=== PATIENT | male | born 1980 | race Caucasian/White ===

== ENCOUNTER 2019-12-31 07:45 | Observation (INO) | payer SELFPAY ==
[~2019-12-31] VITALS: Ht 177 cm; Wt 65.0 kg
[2019-12-31] VITALS (12 sets, daily range): BP systolic 134–160; BP diastolic 80–101
[2019-12-31] MEDS ORDERED: HYDROmorphone 2 MG/ML VIAL (DILAUDID) ONE (07:49)
[2019-12-31] MEDS ORDERED: KETAMINE HCL 100 MG/ML 5 ML VIAL ONE (07:56)
--- NOTE | 2019-12-31 08:20 | Diagnostic Imaging Report ---
Indication: Injured by horse. Findings: There are extra-articular fractures involving the junction of the mid to distal one thirds of the tibial and fibular diaphyses, both fractures mildly comminuted and showed mild about 5 to 10 degrees of medial angulation at the apices with the distal fragments mildly displaced posteriorly by about 1 cm. No overlap or foreshortening. There is overlying artifact limiting evaluation of the ankle with no obvious ankle fracture or ankle dislocation. Dedicated ankle films and knee radiographs recommended to exclude other more proximal or distal injuries. Impression: Mild angulation of a mildly comminuted extraarticular tibial and fibular diaphyseal fractures. Dictated by: Dictated on workstation # [id number]
--- NOTE | 2019-12-31 08:30 | NUR ---
Note saniya in [facility] - 12/31/19 at 0907 by KBELTRAM Patient is cooperative and calm at this time. Vital signs taken. Offered food and water.
--- NOTE | 2019-12-31 08:33 | ED Lower Extremity ---
General Chief Complaint: Lower Extremity Stated Complaint: ANKLE INJ Nursing Triage Note: PT WAS STEPPED ON BY A HORSE ON HIS RIGHT ANKLE AREA. PT ARRIVED IN THE BACK OF A [employer]. Nursing Sepsis Screen: No Definite Risk Source: patient Exam Limitations: no limitations History of Present Illness Date Seen by Provider: Dec 31, 2019 Time Seen by Provider: 07:50 Initial Comments States his horse accidentally stepped on him this morning just prior to arrival. Marilla his leg crack with immediate pain and unable to bear weight. Put in the back of a picket labor union and drove , then Carried into this ER by his friends. Admits history of left leg fracture w repair in the past. Onset: just prior to arrival Method of Injury: direct blow Modifying Factors: Worse With Movement Allergies and Home Medications Allergies Coded Allergies: No Known Drug Allergies (Unverified , 12/31/19) Patient Home Medication List Home Medication List Reviewed: Yes Review of Systems Constitutional: No dizziness, No fever; other (severe pain) Respiratory: No cough, No short of breath Cardiovascular: No chest pain, No edema, No syncope Gastrointestinal: No abdominal pain, No diarrhea, No vomiting Musculoskeletal: see HPI, other (severe RLE pain) Past Ztrwskx-Jbolte-Bwmgrc Hx Past Med/Social Hx: Reviewed Nursing Past Med/Soc Hx Patient Social History Alcohol Use: Occasionally Uses Recreational Drug Use: Yes Drug of Choice: MARIJUANA Smoking Status: Current Everyday Smoker Type Used: Smokeless Tobacco 2nd Hand Smoke Exposure: No Recent Foreign Travel: No Contact w/Someone Who Travel: No Recent Infectious Disease Expo: No Recent Hopitalizations: No Physical Abuse: No Sexual Abuse: No Mistreated: No Fear: No Seasonal Allergies Seasonal Allergies: No Past Medical History Surgeries: Yes Orthopedic Respiratory: No Cardiac: No Neurological: No Genitourinary: No Gastrointestinal: No Musculoskeletal: No Endocrine: No HEENT: No Cancer: No Psychosocial: No Integumentary: No Blood Disorders: No Physical Exam Vital Signs Vital Signs - First Documented 12/31/19 07:59 Temp 36.1 Pulse 55 Resp 18 B/P (MAP) 137/64 (88) Pulse Ox 98 O2 Delivery Room Air Capillary Refill : Less Than 3 Seconds Height, Weight, BMI Height: '" Weight: lbs. oz. kg; 20.00 BMI Method: General Appearance: moderate distress (pain RLE) HEENT: normal ENT inspection Cardiovascular: regular rate, rhythm, no JVD Respiratory: chest non-tender, lungs clear Gastrointestinal: non tender, soft; No distended, No guarding, No rebound Back: no CVA tenderness, no vertebral tenderness Legs: right leg bone tenderness, right leg deformity, right leg limited range of motion, right leg pain, right leg soft tissue tenderness, right leg swelling Knees: bilateral knee non-tender, bilateral knee normal inspection, bilateral knee no evidence of injury Feet: right foot non-tender, right foot normal inspection Neurologic/Psychiatric: no motor/sensory deficits, alert, normal mood/affect Skin: normal color, warm/dry Progress/Results/Core Measures Results/Orders Lab Results Laboratory Tests Test 12/31/19 07:53 Range/Units White Blood Count 7.9 4.3-11.0 10^3/uL Red Blood Count 4.66 4.35-5.85 10^6/uL Hemoglobin 13.9 13.3-17.7 G/DL Hematocrit 41 40-54 % Mean Corpuscular Volume 87 80-99 FL Mean Corpuscular Hemoglobin 30 25-34 PG Mean Corpuscular Hemoglobin Concent 34 32-36 G/DL Red Cell Distribution Width 13.2 10.0-14.5 % Platelet Count 258 130-400 10^3/uL Mean Platelet Volume 10.4 7.4-10.4 FL Neutrophils (%) (Auto) 55 42-75 % Lymphocytes (%) (Auto) 31 12-44 % Monocytes (%) (Auto) 8 0-12 % Eosinophils (%) (Auto) 4 0-10 % Basophils (%) (Auto) 1 0-10 % Neutrophils # (Auto) 4.4 1.8-7.8 X 10^3 Lymphocytes # (Auto) 2.5 1.0-4.0 X 10^3 Monocytes # (Auto) 0.6 0.0-1.0 X 10^3 Eosinophils # (Auto) 0.3 0.0-0.3 10^3/uL Basophils # (Auto) 0.1 0.0-0.1 10^3/uL Sodium Level 139 135-145 MMOL/L Potassium Level 4.1 3.6-5.0 MMOL/L Chloride Level 103 98-107 MMOL/L Carbon Dioxide Level 20 L 21-32 MMOL/L Anion Gap 16 H 5-14 MMOL/L Blood Urea Nitrogen 19 H 7-18 MG/DL Creatinine 1.02 0.60-1.30 MG/DL Estimat Glomerular Filtration Rate > 60 BUN/Creatinine Ratio 19 Glucose Level 142 H 70-105 MG/DL Calcium Level 9.3 8.5-10.1 MG/DL Corrected Calcium 9.0 8.5-10.1 MG/DL Total Bilirubin 0.4 0.1-1.0 MG/DL Aspartate Amino Transf (AST/SGOT) 12 5-34 U/L Alanine Aminotransferase (ALT/SGPT) 11 0-55 U/L Alkaline Phosphatase 66 40-136 U/L Total Protein 7.2 6.4-8.2 GM/DL Albumin 4.4 3.2-4.5 GM/DL My Orders Orders - RENA GREGORIO DO Hydromorphone Injection (Dilaudid Inject (12/31/19 07:49) Ankle 2 View Right (12/31/19 07:52) Ketamine Injection (Ketalar Injection) (12/31/19 07:56) Ankle 2 View Right (12/31/19 08:25) Tibia Fibula 2 View Right (12/31/19 08:43) Cbc With Automated Diff (12/31/19 08:48) Comprehensive Metabolic Panel (12/31/19 08:48) Ketamine Injection (Ketalar Injection) (12/31/19 09:00) Medications Given in ED Current Medications Medications Dose Ordered Sig/Alaina Route Start Time Stop Time Status Last Admin Dose Admin Hydromorphone HCl 2 mg STK-MED ONCE .ROUTE 12/31/19 07:49 12/31/19 07:52 DC 12/31/19 08:20 2 MG Ketamine HCl 500 mg STK-MED ONCE .ROUTE 12/31/19 07:56 12/31/19 08:00 DC 12/31/19 08:25 100 MG Vital Signs/I&O 12/31/19 07:59 Temp 36.1 Pulse 55 Resp 18 B/P (MAP) 137/64 (88) Pulse Ox 98 O2 Delivery Room Air Blood Pressure Mean: 88 Progress Progress Note : Progress Note Given 2 mg of Dilaudid initially with no significant relief of pain, then given 50 mg of ketamine to finish removing his boot. Than additional 50 mg of ketamine to apply a posterior splint. Patient tolerated dissociative sedation well without any adverse effect. Diagnostic Imaging Comments Findings: There are extra-articular fractures involving the junction of the mid to distal one thirds of the tibial and fibular diaphyses, both fractures mildly comminuted and showed mild about 5 to 10 degrees of medial angulation at the apices with the distal fragments mildly displaced posteriorly by about 1 cm. No overlap or foreshortening. There is overlying artifact limiting evaluation of the ankle with no obvious ankle fracture or ankle dislocation. Dedicated ankle films and knee radiographs recommended to exclude other more proximal or distal injuries. Impression: Mild angulation of a mildly comminuted extraarticular tibial and fibular diaphyseal fractures. Dictated on workstation # [id number] Dict: 12/31/19811 Trans: 12/31/19818 [facility] [id number] Interpreted by: ANITRA MARIE Electronically signed by: Departure Impression Primary Impression: Fracture of tibia and fibula Qualified Codes: S82.201A - Unspecified fracture of shaft of right tibia, initial encounter for closed fracture; S82.401A - Unspecified fracture of shaft of right fibula, initial encounter for closed fracture Disposition: 02 XFER [facility] Condition: Improved Admissions Decision to Admit Reason: Admit from ER (Trauma) Decision to Admit/Date: Dec 31, 2019 Time/Decision to Admit Time: 08:00 Transfer Transfer Progress Notes Called Ortho irrigation flume layer, Dr Patterson @ 0800, left message Called his office @0820, spoke to his racing secretary Dr Patterson accepts for transfer/admission to [facility] @ 0840 RENA GREGORIO DO Dec 31, 2019 08:33
--- NOTE | 2019-12-31 08:42 | Diagnostic Imaging Report ---
INDICATION: Right leg fractures, post reduction. TIME OF EXAM: 8:26 AM. COMPARISON: Correlation is made with the prior radiographs form earlier this same morning. FINDINGS: Cast material has been placed transfixing the right lower extremity. The fractures of the distal tibia and fibula at the junction of the mid and distal third are again noted. There is slight medial displacement of the distal fibular and tibial fracture fragments. There is lateral angulation of the distal tibial and fibular fracture fragments. The alignment has improved somewhat since earlier today. There is some mild posterior displacement on the lateral view of the distal tibial and fibular fracture fragments. IMPRESSION: Reduction of the right lower extremity tibial and fibular fractures, as described. There continues to be some displacement and angulation; however, this does appear to be mildly improved. Dictated by: Dictated on workstation # [id number]
[2019-12-31] MEDS ORDERED: KETAMINE HCL 100 MG/ML 5 ML VIAL IV ONE (09:00)
[2019-12-31 09:02] LABS: BASOPHILS # (AUTO) 0.1 10^3/uL (0.0-0.1); BASOPHILS % (AUTO) 1 % (0-10); EOSINOPHILS # (AUTO) 0.3 10^3/uL (0.0-0.3); EOSINOPHILS % (AUTO) 4 % (0-10); HEMATOCRIT 41 % (40-54); HEMOGLOBIN 13.9 G/DL (13.3-17.7); LYMPHOCYTES # (AUTO) 2.5 X 10^3 (1.0-4.0); LYMPHOCYTES % (AUTO) 31 % (12-44); MEAN CORPUSCULAR HEMOGLOBIN 30 PG (25-34); MEAN CORPUSCULAR HGB CONC 34 G/DL (32-36); MEAN CORPUSCULAR VOLUME 87 FL (80-99); MEAN PLATELET VOLUME 10.4 FL (7.4-10.4); MONOCYTES # (AUTO) 0.6 X 10^3 (0.0-1.0); MONOCYTES % (AUTO) 8 % (0-12); NEUTROPHILS # (AUTO) 4.4 X 10^3 (1.8-7.8); NEUTROPHILS % (AUTO) 55 % (42-75); PLATELET COUNT 258 10^3/uL (130-400); RED CELL DISTRIBUTION WIDTH 13.2 % (10.0-14.5); WHITE BLOOD COUNT 7.9 10^3/uL (4.3-11.0)
[2019-12-31 09:11] LABS: ALANINE AMINOTRANSFERASE 11 U/L (0-55); ALKALINE PHOSPHATASE 66 U/L (40-136); BILIRUBIN,TOTAL 0.4 MG/DL (0.1-1.0); BUN/CREATININE RATIO 19; CALCIUM 9.3 MG/DL (8.5-10.1); CARBON DIOXIDE 20 MMOL/L (21-32); CHLORIDE 103 MMOL/L (98-107); CREATININE SERUM 1.02 MG/DL (0.60-1.30); GFR ESTIMATED > 60; GLUCOSE 142 MG/DL (70-105); POTASSIUM 4.1 MMOL/L (3.6-5.0); SODIUM 139 MMOL/L (135-145); TOTAL PROTEIN 7.2 GM/DL (6.4-8.2)
[2019-12-31 09:12] LABS: ALBUMIN 4.4 GM/DL (3.2-4.5)
--- NOTE | 2019-12-31 09:13 | Diagnostic Imaging Report ---
INDICATION: Fracture. FINDINGS: There is mild medial angulation and posterior displacement of the extra-articular fractures of the tibial and fibular diaphyses at the junction of their mid to distal one thirds. No widening of the ankle mortise. The medial, lateral, and posterior malleoli appear intact. The proximal tibia and fibula are unremarkable. The alignment of the knee, as seen on this study, is unremarkable. IMPRESSION: Mild angulation and mildly displaced extra-articular tibial and fibular diaphyseal fractures without overlap or foreshortening. Dictated by: Dictated on workstation # [id number]
[2019-12-31] MEDS ORDERED: NEO/POLY/BAC (NEOSPORIN) OINT 15 GM TUBE ONE (10:23)
--- NOTE | 2019-12-31 10:50 | NUR ---
HORACE MADRIGAL admitted to room 402-1, with an admitting diagnosis of TIB/FIB FX, on 12/31/19 from [facility] ED via stretcher, accompanied by EMS. HORACE MADRIGAL introduced to surroundings, call light, bed controls, phone, TV, temperature control, lights, meal times, smoking policy, visitor policy, side rail policy, bathrooms and showers. Patient Rights given to patient in the handbook. HORACE MADRIGAL verbalizes understanding that [facility] is not responsible for the loss or damage to any personal effects or valuables that are kept in the patients possession during their hospitalization. The following Patient Care Plans were discussed with the patient: Discharge Planning, pain management, dehydration, and medications. HORACE MADRIGAL verbalizes understanding of Interdisciplinary Patient Education. Patient and/or family were informed about the Rapid Response Team and its purpose.
--- OUTSIDE RECORDS SUMMARY | 2019-12-31 10:50 | XMS REPORT | Continuity of Care Document ---
Demographics Preferred Language Unknown Marital Status Unknown Yazidism Affiliation Unknown Race Unknown Ethnic Group Unknown Author Organization Unknown Address Unknown Phone Unavailable Allergies There is no data. Medications There is no data. Problems There is no data. Procedures There is no data. Results Test Result Range Complete blood count (CBC) with automate d white blood cell (WBC) differential - 12/31/19 07:53 Blood leukocytes automated count (number/volume) 7.9 10*3/uL 4.3-11.0 Blood erythrocytes automated count (number/volume) 4.66 10*6/uL 4.35-5.85 Venous blood hemoglobin measurement (mass/volume) 13.9 g/dL 13.3-17.7 Blood hematocrit (volume fraction) 41 % 40-54 Automated erythrocyte mean corpuscular volume 87 [ foz_us] 80-99 Automated erythrocyte mean corpuscular h emoglobin (mass per erythrocyte) 30 pg 25-34 Automated erythrocyte mean corpuscular h emoglobin concentration measurement (mass/volume) 34 g/dL 32-36 Automated erythrocyte distribution width ratio 13. 2 % 10.0- 14.5 Automated blood platelet count (count/volume) 258 10*3/uL 130-400 Automated blood platelet mean volume measurement 10.4 [foz_us] 7.4-10.4 Automated blood neutrophils/100 leukocytes 55 % 42-75 Automated blood lymphocytes/100 leukocytes 31 % 12-44 Blood monocytes/100 leukocytes 8 % 0-12 Automated blood eosinophils/100 leukocytes 4 % 0-10 Automated blood basophils/100 leukocytes 1 % 0-10 Blood neutrophils automated count (number/volume) 4.4 10*3 1.8-7.8 Blood lymphocytes automated count (number/volume) 2.5 10*3 1.0-4.0 Blood monocytes automated count (number/volume) 0. 6 10*3 0.0-1.0 Automated eosinophil count 0.3 10*3/uL 0 .0-0.3 Automated blood basophil count (count/volume) 0.1 10*3/uL 0.0-0.1 Comprehensive metabolic panel - 12/31/19 07:53 Serum or plasma sodium measurement (moles/volume) 139 mmol/L 135-145 Serum or plasma potassium measurement (moles/volume) 4.1 mmol/L 3.6-5.0 Serum or plasma chloride measurement (moles/volume) 103 mmol/L 98-107 Carbon dioxide 20 mmol/L 21-32 Serum or plasma anion gap determination (moles/volume) 16 mmol/L 5-14 Serum or plasma urea nitrogen measurement (mass/volume ) 19 mg/dL 7-18 Serum or plasma creatinine measurement (mass/volume) 1.02 mg/dL 0.60-1.30 Serum or plasma urea nitrogen/creatinine mass ratio 19 NRG Serum or plasma creatinine measurement w ith calculation of estimated glomerular filtration rate > NRG Serum or plasma glucose measurement (mass/volume) 142 mg/dL 70-105 Serum or plasma calcium measurement (mass/volume) 9.3 mg/dL 8.5-10.1 Serum or plasma total bilirubin measurement (mass/volu me) 0.4 mg/dL 0.1-1.0 Serum or plasma alkaline phosphatase maisha surement (enzymatic activity/volume) 66 U/L 40-136 Serum or plasma aspartate aminotransfera se measurement (enzymatic activity/volume) 12 U/L 5-34 Serum or plasma alanine aminotransferase measurement (enzymatic activity/volume) 11 U/L 0-55 Serum or plasma protein measurement (mass/volume) 7.2 g/dL 6.4-8.2 Serum or plasma albumin measurement (mass/volume) 4.4 g/dL 3.2-4.5 CALCIUM CORRECTED 9.0 mg/dL 8.5-10.1 Encounters ACCT No. Visit Date/Time Discharge Status Pt. Type Provider Facility Loc./Unit Complaint [id number] 12/31/2019 09:03:00 Document Registration
[2019-12-31] MEDS ORDERED: fentaNYL INJECTION 100 MCG/2 ML AMP IVP NR (11:00)
[2019-12-31] MEDS ORDERED: ceFAZolin 2 GM IV Premixed 50 ML IV NR (11:00)
--- NOTE | 2019-12-31 11:07 | History & Physical Orthopedic ---
History and Physical Subjective Date of Exam 12/31/19 Chief Complaint Fracture right tibia and fibula HPI/Events since last exam The patient has a 39-year-old white male who was kicked by a horse earlier this morning. He was seen in emergency room at [facility] evaluated and x- rayed noted to have a fracture of the right tibia and fibula. He was splinted and transferred here for further evaluation and treatment. He denies any previous injury to that leg. He's had a previous tibia and fibula fracture on the left. He denies any other injuries from this morning Medical, Surgical History Surgeries include orthopedic for fracture left arm left thumb left tibia and fibula. No other surgeries Illnesses none Medications none Allergies none Social History Patient works on a ranch near [place] Family History Negative Review of Systems Negative except for orthopedic injuries surgeries Allergies: Coded Allergies: No Known Drug Allergies (Unverified , 12/31/19) Objective Exam Constitutional: [Patient is a 39-year-old white male in mild distress due to pain in the right lower extremity. He is alert and oriented] HEENT: [Within normal limits] Neck: [Full range of motion without pain with motion or palpation] Cardiovascular: [Regular rhythm without murmurs] Respiratory: [Lungs clear to auscultation] Gastrointestinal: [No abdominal pain normal bowel sounds] Genitourinary: [Within normal limits] Skin: [Within normal limits] Back/Spine: [No pain with palpation] Extremities: [Upper extremitiesfull range of motion. No pain. No deformity. Neurovascularly intact. Normal sensation. Equal pulses. No weakness. Lower extremitiesfull range of motion left lower extremity. No pain either hip. No pain left knee left ankle. No deformity. Normal sensation with good cap refill. Good pulses on the left. On the right he splinted from the thigh to the toes. He has good sensation to his toes with good capillary refill. Good dorsalis pedis pulse. No pain right hip.] Neurologic: [Grossly intact within normal limits] Psychiatric: [] Hematologic/lymphatic/immunologic: [Negative] Vital Signs Vital Signs Date Time Temp Pulse Resp B/P (MAP) Pulse Ox O2 Delivery O2 Flow Rate FiO2 12/31/19 10:06 36.1 60 18 136/68 98 Room Air 12/31/19 07:59 36.1 55 18 137/64 (88) 98 Room Air Lab Results Laboratory Tests 12/31/19 07:53: White Blood Count 7.9, Red Blood Count 4.66, Hemoglobin 13.9, Hematocrit 41, Mean Corpuscular Volume 87, Mean Corpuscular Hemoglobin 30, Mean Corpuscular Hemoglobin Concent 34, Red Cell Distribution Width 13.2, Platelet Count 258, Mean Platelet Volume 10.4, Neutrophils (%) (Auto) 55, Lymphocytes (%) (Auto) 31, Monocytes (%) (Auto) 8, Eosinophils (%) (Auto) 4, Basophils (%) (Auto) 1, Neutrophils # (Auto) 4.4, Lymphocytes # (Auto) 2.5, Monocytes # (Auto) 0.6, Eosinophils # (Auto) 0.3, Basophils # (Auto) 0.1, Sodium Level 139, Potassium Level 4.1, Chloride Level 103, Carbon Dioxide Level 20L, Anion Gap 16H, Blood U lupillo Nitrogen 19H, Creatinine 1.02, Estimat Glomerular Filtration Rate > 60, BUN/Creatinine Ratio 19, Glucose Level 142H, Calcium Level 9.3, Corrected Calcium 9.0, Total Bilirubin 0.4, Aspartate Amino Transf (AST/SGOT) 12, Alanine Aminotransferase (ALT/SGPT) 11, Alkaline Phosphatase 66, Total Protein 7.2, Albumin 4.4 Imaging X-rays of the right tibia show a comminuted fracture at the junction of the mid and distal thirds of the tibia and fibula with mild displacement Assessment and Plan Assessment Fracture right tibia and fibula awaiting surgery Problem List Closed fracture right tibia and fibula Plan Surgical options were discussed with the patient. He would like to proceed with surgery. He prefers surgery over nonsurgical treatment. He understands proced ure risks, medications as he's had a previous IM rodding of the left tibia. He's been nothing by mouth since 430 this morning when he had some Dr. Bland. Plan on surgery late morning or early afternoon Final Diagonsis Closed fracture right tibia and fibula Level of the visit: Level 3 TOM GARVEY MD Dec 31, 2019 11:07
--- NOTE | 2019-12-31 11:10 | NUR ---
Patient off floor to surgery at this time.
[2019-12-31] MEDS ORDERED: CATHETER FLUSH 10 ML SYR IV PRN (11:15)
[2019-12-31] MEDS: LACTATED RINGERS 1,000 ML IV PRN ×2 (11:30→13:22)
[2019-12-31] MEDS ORDERED: ONDANSETRON 4 MG/2 ML (SDV) Z0FRAN ONE (11:39)
[2019-12-31] MEDS ORDERED: LIDOCAINE PF 2% 5 ML (XYLOCAINE) VIAL ONE (11:39)
[2019-12-31] MEDS ORDERED: DEXAMETHASONE 10 MG/ML (DECADRON) 1 ML VIAL ONE (11:39)
[2019-12-31] MEDS ORDERED: fentaNYL INJECTION 100 MCG/2 ML AMP ONE ×2 (11:39→12:57)
[2019-12-31] MEDS ORDERED: proPOfol 200 MG/20 ML (DIPRIVAN) VIAL IV ONE ×2 (11:39→12:59)
[2019-12-31] MEDS ORDERED: MIDAZOLAM 2 MG/2 ML (VERSED) VIAL ONE (11:40)
[2019-12-31] MEDS ORDERED: SEVOFLURANE (ULTANE) 15 ML INHAL SOLN ONE ×8 (11:52→13:51)
[2019-12-31] MEDS ORDERED: ROCURONIUM 10 MG/ML 5 ML SYRINGE IV ONE (12:30)
[2019-12-31] MEDS ORDERED: SUCCINYLCHOLINE INJ 100 MG/5 ML SYR ONE (12:30)
[2019-12-31] MEDS ORDERED: morphine INJ 10 MG/ML 1ML (SYR OR VIAL) ONE (14:08)
[2019-12-31] MEDS ORDERED: MEPERIDINE (DEMEROL) INJ 50 MG/ML ONE (14:08)
--- NOTE | 2019-12-31 14:08 | Anesthesia-General Post-Op ---
General Patient Condition Mental Status/LOC: Same as Preop Cardiovascular: Satisfactory Nausea/Vomiting: Absent Respiratory: Satisfactory Pain: Controlled Complications: Absent Post Op Complications Complications None Follow Up Care/Instructions Patient Instructions None needed. Anesthesia/Patient Condition Patient Condition Patient is doing well, no complaints, stable vital signs, no apparent adverse anesthesia problems. No complications reported per nursing. ABRAHAM BACON CRNA Dec 31, 2019 14:08
[2019-12-31] MEDS ORDERED: ONDANSETRON 4 MG/2 ML (SDV) Z0FRAN IVP PRN (14:15)
[2019-12-31] MEDS ORDERED: HYDROmorphone 2 MG/ML VIAL (DILAUDID) IV ONE (14:15)
[2019-12-31] MEDS ORDERED: fentaNYL INJECTION 100 MCG/2 ML AMP IVP ONE (14:15)
[2019-12-31] MEDS ORDERED: MEPERIDINE (DEMEROL) INJ 50 MG/ML IVP ONE (14:15)
[2019-12-31] MEDS ORDERED: morphine INJ 10 MG/ML 1ML (SYR OR VIAL) IVP ONE (14:15)
--- NOTE | 2019-12-31 14:22 | Diagnostic Imaging Report ---
INDICATION: Tibial and fibular fractures. Fluoroscopy was provided in the OR for ORIF of the tibial fracture. 173 seconds of fluoroscopic time was utilized. 5 images were obtained demonstrating intramedullary louann transfixing the fracture at the junction of the mid and distal 3rd of the tibia. Alignment anatomic. Fracture at the junction of the mid-distal 3rd of the fibula is again noted. IMPRESSION: Fluoroscopy for tibial ORIF. Dictated by: Dictated on workstation # [id number]
[2019-12-31] MEDS ORDERED: fentaNYL INJECTION 100 MCG/2 ML AMP IVP PRN ×2 (14:30)
--- NOTE | 2019-12-31 14:36 | Operative Report - Ortho ---
Operative Report Surgeon (s)/Mobile Device Engineer (s) Surgeon TOM GARVEY MD Mobile Device Engineer n/a Pre-Operative Diagnosis fracture right tibia and fibula Post-Operative Diagnosis same Operative Report Date of Procedure: Dec 31, 2019 Name of Procedure Performed: Closed IM rodding of right tibia fracture using a 3 75 mm x 11 mm I m louann with proximal distal locking screws Description & Findings Description and Findings: The patient was seen preoperatively and treatment options were discussed with the patient. I recommended closed IM rodding of the right tibia with possible open reduction internal fixation of the right fibula. The patient would like to proceed. He understands the procedure risk complications. The patient was taken operating room and after general anesthesia a tourniquet was placed on the right thigh. The right lower leg was shaved. It was then prepped and draped in usual sterile manner. Using image the incision was planned directly over the patella tendon which was in line with the lateral tibial eminence and the medullary canal. The tourniquet was not used. Incision was made directly over the patella tendon from the inferior pole of patella to the tibial tubercle. This was taken down through subcutaneous tissue. Bleeders are cauterized. The peritenon was split as well as the patella tendon. A guidewire was then placed at the anterior edge of the tibia and using image was identified to be in the proper location which was in line with the central aspect of the canal. Lateral was also used to verify the position at the anterior edge of the tibia. This was then inserted and overreamed. A guidewire was then placed through the opening of the tibia down to the fracture. The fracture was reduced without difficulty using traction countertraction and little bit of varus. Guidewire was then placed into the distal fragment. This was just above the articular surface of the distal tibia. This was measured and a 375 mm louann was selected. The tibia was then reamed starting at 8.5 and reamer and then a 9 mm side catheter up to 12 mm. The 11 mm louann was then selected at 375 mm. This was placed over the guidewire and advanced to the fracture site. Again with the fracture reduced the louann was placed across fracture site into the distal fragment. This aligned the fracture with excellent alignment. There was a little comminution at the fracture site with a small fragment anteriorly. Once the louann was inserted in proper position and the fracture was checked in excellent alignment was noted. There is no distraction. Again there was a little opening anteriorly from the small fragment/comminution. 2 locking screws were placed proximally one dynamic and one static these were drilled measured and appropriate length screws were selected. Then the 2 distal locking screws were inserted from medial to lateral the proximal more also inserted from medial lateral. Distally screws were inserted after drilling measuring and inserting appropriating screws. The entire tibia was then evaluated in AP and lateral views and excellent alignment of the fracture was noted. Equal rotation of the foot was noted with the patella anterior. Good dorsalis pedis and posterior tibial pulses were noted. Permanent x-rays were obtained of the entire tibia. At this point the insertion device was removed. A neutral end cap was inserted. Lungs are irrigated normal saline. The tibial incision was closed with 0 Vicryl for the patella tendon to O for the peritenon to all for several days tissue and then skin clips for the skin. The screw sites were closed with skin clips. The wounds were dressed with antibiotic ointment Adaptic and 4 x 4's and wrapped with Kerlix. Michele wrap screw then wrapped from the toes to the knee. Again good ulcers were noted and good capillary refill. Good position of the foot was noted and equal compared to the left side. The patient was then transferred to his hospital bed and to recovery room in good condition, he tolerated the procedure well. He will be admitted. Tourniquetnone Blood [id number] mL's Replacementnone Complicationsnone n/a Anesthesia Type Gen. Estimated Blood Loss 100 mls minimal Packing none. Specimen(s) collected/removed None TOM GARVEY MD Dec 31, 2019 14:36
[2019-12-31] MEDS: LACTATED RINGERS 1,000 ML IV SCH ×2 (14:45→18:03)
--- NOTE | 2019-12-31 15:05 | NUR ---
Patient back from PACU at this time. Patient denies any pain or discomfort at this time. Family at bedside. Report from Shanti HUTCHISON.
--- NOTE | 2019-12-31 16:13 | NUR ---
SPOKE WITH THE PT- HE DOES NOT KNOW THE NAMES OF HIS MEDICATIONS OR EVEN RECOGNIZE WHEN I LIST MEDS FROM THE EXT MED HISTORY. HE SUGGESTED I CALL HIS GIRLFRIEND OPHELIA SINCE SHE TAKES CARE OF HIS MEDS. I CALLED OPHELIA 3X AND NEVER GOT AN ANSWER AND THERE WAS NO VOICE MAIL TO LEAVE A MESSAGE I DID CONTACT ISA AND GABRIELE AND HAD A MED LIST FAXED OVER. I LEFT A MESSAGE FOR [facility] TO FAX OVER A CURRENT MED LIST BUT I HAVE NOT RECEIVED IT YET. I WILL KEEP TRYING TO FOLLOW UP WITH OPHELIA AND [facility] TO COMPLETE THE MED REC Addendum: 12/31/19 at [address]16 [address] [facility] DISREGARD WRONG PT
[2019-12-31] MEDS: oxyCODONE/APAP 5/325MG (PERCOCET 5) TABLET PO PRN (18:03)
--- NOTE | 2019-12-31 18:44 | Progress Note - Ortho ---
Progress Note Subjective Date of Exam 12/31/19 Chief Complaint Status post IM rodding right tibia fracture HPI/Events since last exam Patient is postop and doing well. His pain medication is controlling his pain. Review of Systems Reviewed and no additions or changes Allergies: Coded Allergies: No Known Drug Allergies (Unverified , 12/31/19) Objective Exam Constitutional: [] HEENT: [] Neck: [] Cardiovascular: [] Respiratory: [] Gastrointestinal: [] Genitourinary: [] Skin: [] Back/Spine: [] Extremities: [Some bleeding is noted from the incisions medial ankle where the distal locking screws. Is able to move his toes and has normal sensation with good cap refill. Good dorsalis pedis pulse] Neurologic: [] Psychiatric: [] Hematologic/lymphatic/immunologic: [] Vital Signs Vital Signs Date Time Temp Pulse Resp B/P (MAP) Pulse Ox O2 Delivery O2 Flow Rate FiO2 12/31/19 16:00 36.9 55 18 139/96 (110) 94 Nasal Cannula 2.00 12/31/19 15:05 Nasal Cannula 2 12/31/19 15:05 36.8 18 148/87 (107) 95 Nasal Cannula 2 12/31/19 15:00 Nasal Cannula 2 12/31/19 15:00 18 146/88 (107) 94 Nasal Cannula 2 12/31/19 14:50 18 153/97 (115) 96 Room Air 12/31/19 14:47 OxyMask 3 12/31/19 14:40 20 142/93 (109) 97 OxyMask 3 12/31/19 14:35 OxyMask 6 12/31/19 14:30 20 157/101 (119) 100 OxyMask 6 12/31/19 14:20 OxyMask 6 12/31/19 14:20 20 142/93 (109) 100 OxyMask 6 12/31/19 14:10 20 155/81 (105) 100 OxyMask 6 12/31/19 14:06 OxyMask 6 12/31/19 14:06 36.5 22 134/97 (109) 96 OxyMask 6 12/31/19 13:36 36.7 45 19 160/90 (113) 98 12/31/19 11:00 Room Air 12/31/19 10:50 36.7 45 19 160/90 98 Room Air 12/31/19 10:06 36.1 60 18 136/68 98 Room Air 12/31/19 07:59 36.1 55 18 137/64 (88) 98 Room Air Lab Results Laboratory Tests 12/31/19 07:53: White Blood Count 7.9, Red Blood Count 4.66, Hemoglobin 13.9, Hematocrit 41, Mean Corpuscular Volume 87, Mean Corpuscular Hemoglobin 30, Mean Corpuscular Hemoglobin Concent 34, Red Cell Distribution Width 13.2, Platelet Count 258, Mean Platelet Volume 10.4, Neutrophils (%) (Auto) 55, Lymphocytes (%) (Auto) 31, Monocytes (%) (Auto) 8, Eosinophils (%) (Auto) 4, Basophils (%) (Auto) 1, Neutrophils # (Auto) 4.4, Lymphocytes # (Auto) 2.5, Monocytes # (Auto) 0.6, Eosinophils # (Auto) 0.3, Basophils # (Auto) 0.1, Sodium Level 139, Potassium Level 4.1, Chloride Level 103, Carbon Dioxide Level 20L, Anion Gap 16H, Blood Urea Nitrogen 19H, Creatinine 1.02, Estimat Glomerular Filtration Rate > 60, BUN /Creatinine Ratio 19, Glucose Level 142H, Calcium Level 9.3, Corrected Calcium 9.0, Total Bilirubin 0.4, Aspartate Amino Transf (AST/SGOT) 12, Alanine Aminotransferase (ALT/SGPT) 11, Alkaline Phosphatase 66, Total Protein 7.2, Albumin 4.4 Assessment and Plan Assessment Doing well postop Problem List Unchanged Plan Continue crutch ambulation partial weightbearing on the right. Continue elevation and ice. Final Diagonsis Status post IM rodding right tibia fracture Level of the visit: Level 3 Clinical Quality Measures DVT/VTE Risk/Contraindication: RFS Level Per Nursing on Admit: 0=No Risk/No VTE PPX TOM GARVEY MD Dec 31, 2019 18:44
[2019-12-31] MEDS ORDERED: ceFAZolin 2 GM IV Premixed 50 ML IV SCH (19:00)
[2020-01-01] VITALS: BP 119/76
[2020-01-01] MEDS: oxyCODONE/APAP 5/325MG (PERCOCET 5) TABLET PO PRN ×3 (00:24→13:03)
[2020-01-01] MEDS: LACTATED RINGERS 1,000 ML IV SCH ×2 (02:50→11:02)
[2020-01-01] MEDS: ceFAZolin 2 GM IV Premixed 50 ML IV SCH ×2 (03:08→10:48)
[2020-01-01 04:00] VITALS: BP 125/87
[2020-01-01 05:23] LABS: HEMOGLOBIN 12.7 G/DL (13.3-17.7)
--- NOTE | 2020-01-01 06:40 | NUR ---
pt refused to take Lovenox shot. states he is tired of being stuck, refusing dhot but would take pill.
[2020-01-01] MEDS ORDERED: ENOXAPARIN 40 MG/0.4 ML (LOVENOX) SYR SC SCH (07:00)
[2020-01-01 08:00] VITALS: BP 143/73
--- NOTE | 2020-01-01 08:24 | NUR ---
Lovenox shot offered again this AM. patient refused medication stating he didn't care what the medication was for and that he was not going to get stuck anymore
--- NOTE | 2020-01-01 08:36 | Physical Therapy Progress Note ---
Therapy Progress Note Patient adamantly declined PT but wanted new crutches. Patient reports he knows how to do everything with crutches due to prior fractures. PT issued and sized crutches and informed RN of patient refusal. 1 visit ([phone]) COOPER SCHNEIDER PT Jan 01, 2020 08:35
--- NOTE | 2020-01-01 08:40 | NUR ---
SPOKE WITH PT TO COMPLETE THE MED REC PT DENIES TAKING ANY PRESCRIPTION OR OTC MEDICATIONS I DID UPDATE HIS PREFERRED PHARMACY
[2020-01-01] MEDS ORDERED: OXYC1TAB87 PO (10:09)
--- NOTE | 2020-01-01 10:24 | Discharge Inst-Simple/Standard ---
Discharge Inst-Standard Reconcile Patient Problems Problems Reviewed?: Yes Discharge Medications New, Converted or Re-Newed RX: RX on Chart Patient Instructions/Follow Up Plan of Care/Instructions/FU: Follow-up in the office on 01/02 or Crutch ambulation nonweightbearing on the right Continue ice and elevation. Percocet for painprescription given Activity as Tolerated: No Discharge Diet: No Restrictions TOM GARVEY MD Jan 01, 2020 10:24
--- NOTE | 2020-01-01 10:28 | Discharge Summary ---
Discharge Summary Hospital Course Was the Problem List Reviewed?: Yes Hospital Course Date of Admission: Dec 31, 2019 at 09:17 Admission Diagnosis : Family Physician/Provider: No,Local Physician Date of Discharge: 01/01/20 Discharge Diagnosis: [ ] Hospital Course: [ ] Labs and Pending Lab Test: Laboratory Tests 01/01/20 04:50: Hemoglobin 12.7L, Hematocrit 38L Microbiology 12/31/19 MRSA Screen - Final, Complete MRSA not isolated Home Meds Active Percocet 5-325 mg Tablet (Oxycodone HCl/Acetaminophen) 1 Each Tablet 1 Tab PO Q4H PRN Assessment/Pt Instructions Patient is doing well postop day number 1 and would like to be discharged. He has crutches and physical therapy is worked with him. Follow-up on or Tuesday 01/02 or Percocet 5/325 for pain and prescription given Continue ice and elevation Discharge Instructions Discharge Diet: No Restrictions Activity as Tolerated: No Discharge Physical Examination Vital Signs Vital Signs Date Time Temp Pulse Resp B/P (MAP) Pulse Ox O2 Delivery O2 Flow Rate FiO2 01/01/20 08:00 Room Air 01/01/20 08:00 37.2 52 18 143/73 (96) 97 01/01/20 04:00 1.00 Allergies: Coded Allergies: No Known Drug Allergies (Unverified , 12/31/19) Discharge Summary Date of Admission Dec 31, 2019 at 09:17 Date of Discharge Clinical Quality Measures DVT/VTE Risk/Contraindication: RFS Level Per Nursing on Admit: 0=No Risk/No VTE PPX TOM GARVEY MD Jan 01, 2020 10:27
--- NOTE | 2020-01-01 10:32 | Progress Note - Ortho ---
Progress Note Subjective Date of Exam 01/01/20 Chief Complaint 1 day postop closed IM rodding right tibia fracture HPI/Events since last exam The patient is doing well first day postop. He is afebrile. He is having mild pain controlled with pain medication. He's been up with crutches with physical therapy. He wants to be discharged. Review of Systems Reviewed and no additions or changes Allergies: Coded Allergies: No Known Drug Allergies (Unverified , 12/31/19) Home Meds Active Scripts Oxycodone HCl/Acetaminophen (Percocet 5-325 mg Tablet) 1 Each Tablet, 1 TAB PO Q4H PRN for PAIN-MODERATE (5-7), #40 TAB Prov:TOM GARVEY MD 01/01/20 Objective Exam Constitutional: [] HEENT: [] Neck: [] Cardiovascular: [] Respiratory: [] Gastrointestinal: [] Genitourinary: [] Skin: [] Back/Spine: [] Extremities: [Right legbleeding from the distal locking screws medial ankle. Normal sensation to the foot and toes with good cap refill. Good dorsalis pedis pulse. Good posterior tibial pulse. The patient is able to move his toes and dorsiflex and plantarflex foot and ankle. The calf is soft. His dressing was removed. His wounds look good at the ankle. Did not change the dressing at the knee. The wound was redressed.] Neurologic: [] Psychiatric: [] Hematologic/lymphatic/immunologic: [] Vital Signs Vital Signs Date Time Temp Pulse Resp B/P (MAP) Pulse Ox O2 Delivery O2 Flow Rate FiO2 01/01/20 08:00 Room Air 01/01/20 08:00 37.2 52 18 143/73 (96) 97 Room Air 01/01/20 04:00 37.1 62 21 125/87 (100) 94 Nasal Cannula 1.00 01/01/20 00:00 37.4 51 20 119/76 (90) 96 Nasal Cannula 1.00 12/31/19 20:26 37.1 45 16 144/80 (101) 97 Nasal Cannula 1.00 12/31/19 20:00 Room Air 12/31/19 16:00 36.9 55 18 139/96 (110) 94 Nasal Cannula 2.00 12/31/19 15:05 Nasal Cannula 2 12/31/19 15:05 36.8 18 148/87 (107) 95 Nasal Cannula 2 12/31/19 15:00 Nasal Cannula 2 12/31/19 15:00 18 146/88 (107) 94 Nasal Cannula 2 12/31/19 14:50 18 153/97 (115) 96 Room Air 12/31/19 14:47 OxyMask 3 12/31/19 14:40 20 142/93 (109) 97 OxyMask 3 12/31/19 14:35 OxyMask 6 12/31/19 14:30 20 157/101 (119) 100 OxyMask 6 12/31/19 14:20 OxyMask 6 12/31/19 14:20 20 142/93 (109) 100 OxyMask 6 12/31/19 14:10 20 155/81 (105) 100 OxyMask 6 12/31/19 14:06 OxyMask 6 12/31/19 14:06 36.5 22 134/97 (109) 96 OxyMask 6 12/31/19 13:36 36.7 45 19 160/90 (113) 98 12/31/19 11:00 Room Air 12/31/19 10:50 36.7 45 19 160/90 98 Room Air I & O 01/01/20 07:00 Intake Total 1800 ml Output Total 3250 ml Balance -1450 ml Lab Results Laboratory Tests 01/01/20 04:50: Hemoglobin 12.7L, Hematocrit 38L Microbiology 12/31/19 MRSA Screen - Final, Complete MRSA not isolated Assessment and Plan Assessment Doing well postop day number 1 Problem List Unchangedclosed tibia-fibula fracture right Plan Given the patient was predischarge. He'll continue with crutches non-to partial weightbearing on the right. Elevation and ice. Percocet 5/325 number 40 to take 1 every 4 hours when necessary pain. Call if he has any problems. No need for dressing change. We'll change dressing when patient follows-up in the office on 01/02 or Final Diagonsis Closed tibia-fibula fracture right Level of the visit: Level 3 Clinical Quality Measures DVT/VTE Risk/Contraindication: RFS Level Per Nursing on Admit: 0=No Risk/No VTE PPX TOM GARVEY MD Jan 01, 2020 10:32
--- NOTE | 2020-01-01 11:00 | NUR ---
"RD ASSESSMENT PMHx: no significant PMH; s/p repair R tibia fibula fracture PT INTERACTION: Pt was awake and semi-pleasant during nutrition assessment. Pt states current appetite is alright, but was better prior to admit. Note avg PO intake 50% x2meal, per chart review. Pt states following a regular diet at home, and has no issues with chewing/swallowing food. Pt states no recent issues with nausea, vomiting, constipation, or diarrhea, and that his last BM was prior to admit. Pt states no recent wt changes. Note unable to determine recent wt hx, per chart review. ABNORMAL NUTRITION-RELATED LAB VALUES LOW: HIGH: BUN 19; glu 142 Est. kcal needs: 9154-2438 kcal | 25-30 kcal/kg Est. Pro needs: 78-91 g Pro | 1.2-1.4 g Pro/kg PES STATEMENT: Inadequate oral intake (NI-2.1) related to loss of appetite as evidenced by pt interview | avg PO intake 50% x2meal INTERVENTION: Continue with current diet order of Regular diet. Add Ensure Enlive (vary) to meals TID, for increased kcal intake. Provides 350 kcal and 13 g Pro per serving. Will continue to follow and reassess as pt needs, intake, and status change. MONITOR/EVALUATE: PO Intake; Plan of Care; Hydration Status; Weight Status; Lab Values Keegan Rebollar, MS, RD, LD"
[2020-01-01 13:25] VITALS: BP 143/73
== END 2020-01-01 13:25 | disposition home or self-care (01) ==
LOC: ER FS 07:46 → 4TH 09:17
PROVIDERS: ADMIT Orthopaedic Surgery; ATTEND Orthopaedic Surgery
DX: S82.251A Displaced comminuted fracture of shaft of right tibia, initial encounter for closed fracture (principal); S82.401A Unspecified fracture of shaft of right fibula, initial encounter for closed fracture; F17.290 Nicotine dependence, other tobacco product, uncomplicated
CPT/HCPCS: 27752; 27840; 29505; 36415; 73590; 73600; 76000; 80053; 85014; 85018; 85025; 87081; 94664

== ENCOUNTER → 2020-01-03 | Outpatient (CLI) | payer SELFPAY ==
[~2020-01-03] MED LIST: OXYC1TAB87 PO
== END ==
LOC: ORTHO 10:25
PROVIDERS: ATTEND Orthopaedic Surgery
DX: S82.91XD Unspecified fracture of right lower leg, subsequent encounter for closed fracture with routine healing (principal)

== ENCOUNTER → 2020-01-14 | Outpatient (CLI) | payer SELFPAY ==
--- NOTE | 2020-01-14 11:31 | Diagnostic Imaging Report ---
INDICATION: Followup tibial fracture. TIME OF EXAM: 11:04 AM Correlation made with prior radiograph from 12/31/2019. Since prior study an intramedullary louann has been placed and transfixes the fracture at the junction of the mid and distal 3rd of the tibia. Alignment is now anatomic. Comminuted fracture of the distal fibula at the junction of the mid and distal 3rd is again noted. Overall alignment is near anatomic. Alignment of the ankle and knee is normal. IMPRESSION: ORIF involving the distal tibial fracture showing an near-anatomic alignment. There is near-anatomic alignment of distal fibular fracture as well. Dictated by: Dictated on workstation # [id number]
== END ==
LOC: ORTHO 10:46
PROVIDERS: ATTEND Orthopaedic Surgery
DX: S82.201D Unspecified fracture of shaft of right tibia, subsequent encounter for closed fracture with routine healing (principal); X58.XXXD Exposure to other specified factors, subsequent encounter
CPT/HCPCS: 73590

== ENCOUNTER → 2020-01-28 | Outpatient (CLI) | payer SELFPAY ==
--- NOTE | 2020-01-28 10:14 | Diagnostic Imaging Report ---
INDICATION: Fracture, followup TECHNIQUE: AP and lateral views of the right tibia and fibula CORRELATION STUDY: 01/14/2020 FINDINGS: Longstem intramedullary louann with 2 proximal and 2 distal fixation screws remain in place. This is transfixing an obliquely oriented fracture of the mid to distal tibia shaft. Fracture lines are still well visualized. Alignment is anatomic. Little if any interval healing is suggested. Butterfly-type fragment is displaced posteriorly and laterally. An additional transverse slightly obliquely oriented fracture in a similar location of the fibula is present. There is slight medial and dorsal displacement main distal fracture fragment approximating with the cortex. Slight impaction. Fracture line still visualized and without significant interval healing change. Alignment is near-anatomic. IMPRESSION: 1.Internal fixation of a mid to distal tibia fracture. Fracture still visualized, alignment generally stable. No appreciable change and/or interval healing at the mid to distal fibular shaft fracture. Dictated by: Dictated on workstation # [id number]
== END ==
LOC: ORTHO 09:18
PROVIDERS: ATTEND Orthopaedic Surgery
DX: S82.201D Unspecified fracture of shaft of right tibia, subsequent encounter for closed fracture with routine healing (principal)
CPT/HCPCS: 73590